=== PATIENT | male | born 1970 | race Two or more races ===

== ENCOUNTER 2017-01-14 00:15 | Emergency (ER) | payer OTHER ==
[~2017-01-14] VITALS: Ht 165.1 cm; Wt 77.1 kg
== END 2017-01-14 01:50 | disposition home or self-care (01) ==
LOC: CED 00:15
DX: T23.201A Burn of second degree of right hand, unspecified site, initial encounter (principal); T31.0 Burns involving less than 10% of body surface; X19.XXXA Contact with other heat and hot substances, initial encounter; Y92.009 Unspecified place in unspecified non-institutional (private) residence as the place of occurrence of the external cause
CPT/HCPCS: 99283